=== PATIENT | male | born 1970 | race Caucasian/White ===

== ENCOUNTER 2018-12-28 15:13 | Emergency (ER) | payer OTHER ==
[~2018-12-28] VITALS: Ht 177.8 cm; Wt 102.1 kg
[2018-12-28 16:05] LABS: BASOPHILS % 0.4 % (0.0-1.0); EOSINOPHILS # (AUTO) 0.2 (0.0-0.4); EOSINOPHILS % 2.2 % (0.0-6.0); HEMATOCRIT 47.6 % (38.2-49.6); HEMOGLOBIN 16.3 g/dL (14.0-18.0); LYMPHOCYTES # (AUTO) 2.5 (1.0-3.2); LYMPHOCYTES % 35.9 % (18.0-39.1); MEAN CORPUSCULAR HEMOGLOBIN 32.9 pg (28-32); MEAN CORPUSCULAR HGB CONC 34.2 g/dL (31-35); MEAN CORPUSCULAR VOLUME 96.2 fL (81-99); MONOCYTES # (AUTO) 0.6 (0.2-0.8); MONOCYTES % 8.6 % (4.4-11.3); NEUTROPHILS # (AUTO) 3.6 (2.1-6.9); NEUTROPHILS % 52.5 % (38.7-80.0); PLATELET COUNT 258 x10e3/uL (140-360); RED BLOOD COUNT 4.95 x10e6/uL (4.3-5.7); RED CELL DISTRIBUTION WIDTH 12.6 % (11.7-14.4)
[2018-12-28 16:26] LABS: CLARITY,URINE CLEAR (CLEAR); COLOR,URINE YELLOW (YELLOW)
[2018-12-28 16:27] LABS: BACTERIA,URINE RARE /HPF; BILIRUBIN,URINE NEGATIVE (NEGATIVE); EPITHELIAL CELLS,URINE FEW /LPF; KETONES,URINE NEGATIVE (NEGATIVE); LEUKOCYTE ESTERASE ,URINE NEGATIVE (NEGATIVE); NITRITE,URINE NEGATIVE (NEGATIVE); PROTEIN,URINE DIPSTICK NEGATIVE (NEGATIVE); URINE UROBILINOGEN 0.2 mg/dL (0.2 - 1)
[2018-12-28 16:29] LABS: ALANINE AMINOTRANSFERASE 36 IU/L (0-55); ALBUMIN 3.9 g/dL (3.5-5.0); ALKALINE PHOSPHATASE 61 IU/L (40-150); ANION GAP 11.9 mmol/L (8-16); BLOOD UREA NITROGEN 11 mg/dL (7-26); BUN/CREATININE RATIO 10 (6-25); CALCIUM 9.5 mg/dL (8.4-10.2); CARBON DIOXIDE 29 mmol/L (22-29); CHLORIDE 101 mmol/L (98-107); EST GLOMERULAR FILTRATION RATE > 60 ML/MIN (60-); GLUCOSE 99 mg/dL (74-118); POTASSIUM 3.9 mmol/L (3.5-5.1); SODIUM 138 mmol/L (136-145)
[2018-12-28 16:57] LABS: MAGNESIUM 2.4 MG/DL (1.3-2.1)
[2018-12-28] MEDS ORDERED: SODIUM CHLORIDE 0.9% 50ML 50 ML ONE (17:34)
[2018-12-28] MEDS ORDERED: IOPAMIDOL 370 MG/ML 200 ML INFUS..BTL INJ ONE (17:34)
--- NOTE | 2018-12-28 17:42 | Diagnostic Imaging Report ---
CT Abdomen And Pelvis with Intravenous Contrast INDICATION: Malodorous urine, increased urinary frequency, ^LOW ABD PAIN ^[id number] ^[id number] TECHNIQUE: Thin collimation axial images obtained from the diaphragm to the level of the pubic symphysis following the uneventful administration of 100 cc of low osmolar, nonionic intravenous contrast. Dose reduction techniques used: Automated exposure control, adjustment of the mAs and/or kVp according to patient size, standardized low-dose protocol, and/or iterative reconstruction technique. RADIATION DOSE: Total DLP: 880.2 mGy*cm Estimated effective dose: (DLP x 0.015 x size factor) mSv CTDIvol has been reviewed. It is below the limits set by the Radiation Protocol Committee (RPC). COMPARISON: None. ABDOMEN FINDINGS: Lung Bases: Trace bibasilar atelectasis. Visualized portion of the mediastinum is normal. Liver: Decreased attenuation consistent with steatosis. Several poorly defined low attenuating lesions in each lobe measure up to 13 mm. Gallbladder: Present and appears normal. No biliary ductal dilatation. Pancreas: Normal attenuation without mass or ductal dilatation. Spleen: Normal in size. No evidence of mass.. Adrenal Glands: No evidence for mass. Kidneys: Right: Normal enhancement. No soft tissue mass. No hydronephrosis. Left: Normal enhancement. Low attenuating lesion the anterior pole measures 1.1 x 1.8 cm. No hydronephrosis. Lymph Nodes: No enlarged abdominal or periaortic lymph nodes. Aorta: Normal in diameter. The infrarenal aorta and iliac arteries are mildly ectatic PELVIS FINDINGS: Bowel: Stomach: No mural thickening. Normal mucosal enhancement. Small Bowel: Normal in caliber with normal wall thickness. Large Bowel: Normal in caliber with normal wall thickness. Appendix: Best visualized on coronal reformations and is normal. Bladder: Normal. Prostate gland/seminal vesicles: Unremarkable. Peritoneum/retroperitoneum: No free fluid or fluid collection Bones: Mild degenerative changes of the spine with grade 1 retrolisthesis of L5 on S1. No pars defects. Soft tissues: There are clips along the spermatic cords suggestive of vasectomy. IMPRESSION: 1. No evidence for bowel obstruction or inflammation. Normal appendix. 2. No CT evidence of urinary tract infection. 3. Steatosis. Nonspecific low attenuating hepatic lesions. Recommend further characterization with CT or MRI of the liver on an outpatient basis. 4. Low attenuating lesion in the left kidney may represent a cyst. This can be confirmed with renal ultrasound. Signed by: Dr. Samir Gandara MD on 12/28/2018 5:38 PM
== END 2018-12-28 18:50 | disposition home or self-care (01) ==
LOC: ER 15:13
DX: R10.31 Right lower quadrant pain (principal); R10.32 Left lower quadrant pain; K57.32 Diverticulitis of large intestine without perforation or abscess without bleeding
CPT/HCPCS: 36415; 74177; 80053; 81001; 82150; 83690; 83735; 85025; 99284; Q9967

== ENCOUNTER 2022-02-27 06:14 | Emergency (ER) | payer OTHER ==
[~2022-02-27] VITALS: Ht 177.8 cm; Wt 108.9 kg
[2022-02-27] MEDS ORDERED: CEPHALEXIN500 MG PO (07:42)
[2022-02-27] MEDS ORDERED: BACITRACIN ZINC 0.9GM TP ONE (08:03)
== END 2022-02-27 08:06 | disposition home or self-care (01) ==
LOC: FSED 07:06
DX: S81.811A Laceration without foreign body, right lower leg, initial encounter (principal); W26.8XXA Contact with other sharp object(s), not elsewhere classified, initial encounter; Y93.55 Activity, bike riding; Y92.89 Other specified places as the place of occurrence of the external cause; I10 Essential (primary) hypertension
CPT/HCPCS: 99283

== ENCOUNTER 2022-03-09 20:26 | Emergency (ER) | payer OTHER ==
[~2022-03-09] VITALS: Ht 177.8 cm; Wt 130.2 kg
[~2022-03-09 20:26] MED LIST: CEPHALEXIN500 MG PO
[2022-03-09 20:46] VITALS: BP 147/92
== END 2022-03-09 20:46 | disposition home or self-care (01) ==
LOC: FSED 20:36
DX: Z48.02 Encounter for removal of sutures (principal)
CPT/HCPCS: 99282; S0630